=== PATIENT | female | born 1960 | race Caucasian/White ===

== ENCOUNTER → 2020-06-05 12:20 | Outpatient (BNVA) | payer MEDICARE, MEDICAID, SELFPAY | PROVIDERS: Visit Provider Psychiatry & Neurology Psychiatry | DX: F43.10 Post-traumatic stress disorder, unspecified (principal); F41.9 Anxiety disorder, unspecified | CPT/HCPCS: 90792 ==

== ENCOUNTER → 2020-07-05 09:23 | Outpatient (BNVA) | payer MEDICARE, MEDICAID, SELFPAY | PROVIDERS: Visit Provider Psychiatry & Neurology Psychiatry | DX: F43.10 Post-traumatic stress disorder, unspecified (principal); F41.9 Anxiety disorder, unspecified | CPT/HCPCS: 99214 ==

== ENCOUNTER 2020-08-18 17:11 | Emergency (ER) | payer MEDICARE, MEDICAID, SELFPAY ==
[2020-08-18 17:20] VITALS: BP 164/107; PULSE 93; RESP 18; TEMP 36.7; O2SAT 96; BMI 49.6
--- NOTE | 2020-08-18 17:31 | ECG_ITS ---
[facility] Test Date: 2020-08-18 Pat Name: Kacy Jimenez Department: Room: Gender: Female Music Director: : 1960 Requested By: Mu Mensah Order Number: [id number] Pio MD: Sheldon Toro M.D. Measurements Intervals [place] Rate: 97 P: 29 DC: 151 QRS: -4 QRSD: 89 T: 73 QT: 355 QTc: 451 Interpretive Statements SINUS RHYTHM WITH FREQUENT SUPRAVENTRICULAR PREMATURE COMPLEXES NONSPECIFIC T-WAVE ABNORMALITY ABNORMAL RHYTHM ECG No previous ECG available for comparison Electronically Signed On 08-19-2020 18:03:15 CDT by Sheldon Toro M.D. [email or web address] medical [email or web address] medical [facility].[facility]/store/OM/[id number]
--- NOTE | 2020-08-18 17:31 | CTR_ITS ---
PROCEDURE INFORMATION: Exam: CT Abdomen And Pelvis Without Contrast Exam date and time: 08/18/2020 5:51 PM Age: 60 years old Clinical indication: Abdominal pain; Right; Prior surgery; Surgery date: 6+ months; Surgery type: Gb, hernia; Patient HX: C/O R flank pain w a HX of stones TECHNIQUE: Imaging protocol: Computed tomography of the abdomen and pelvis without contrast. Radiation optimization: All CT scans at this facility use at least one of these dose optimization techniques: automated exposure control; mA and/or kV adjustment per patient size (includes targeted exams where dose is matched to clinical indication); or iterative reconstruction. COMPARISON: No relevant prior studies available. RADIATION DOSE METRICS: Total DLP (mGy-cm): 1921.88 FINDINGS: Lungs: The visualized lung bases are clear. Liver: Normal size and density. No focal mass. Gallbladder and bile ducts: Status post cholecystectomy. No evidence of biliary dilatation. Pancreas: No evidence of mass. No ductal dilation. Spleen: No splenomegaly or mass. Adrenal glands: Small bilateral adrenal nodules are fat density consistent with a benign lipid rich adrenal adenomas. Kidneys and ureters: A tiny calcification in the left kidney is most likely a vascular calcification. No definite stones. No hydronephrosis or hydroureter. Stomach and bowel: Scattered diverticula throughout the colon. No signs of diverticulitis. Appendix: The appendix is not clearly seen, but there are no secondary signs of acute appendicitis. Intraperitoneal space: No free air. No free fluid or evidence of abscess. Vasculature: Scattered vascular calcifications. Lymph nodes: No lymphadenopathy. Urinary bladder: The urinary bladder is collapsed and otherwise normal in CT appearance. Reproductive: Status post hysterectomy. Bones/joints: Moderate degenerative changes of the spine. Soft tissues: Small fat containing right inguinal hernia Postsurgical changes of the abdominal wall. CT/CT kidney stone 20638 IMPRESSION: No urinary tract stones. No hydronephrosis or hydroureter. Scattered diverticulosis. No signs of diverticulitis. Small fat containing right inguinal hernia. Radiation Dose CTDIVOL = (mGy): DLP = 1921.88 (mGy-cm)
--- NOTE | 2020-08-18 17:31 | W.ED.BACK ---
Documented by User: Mu Hazel DO 08/20/20 07:41 HPI - Back Pain/Injury General: Chief Complaint: Back Pain/Injury Stated Complaint: BACK PAIN Time Seen by Provider: 08/18/20 17:20 History of Present Illness: HPI Narrative: 60-year-old female comes in complaining of right-sided flank pain. Is very positional when she moves or even tries to get up on the bed exacerbates significantly she is not noted any hematuria no dysuria urgency or frequency no fever sweats or chills denies any abdominal pain. She does have a history of kidney stones been several years since she has had a problem with a kidney stone. MD elicited complaint: back pain [facility] ED PFSH: Medical History Anxiety History of colon polyps PTSD (post-traumatic stress disorder) Social History Current gender identity: Female Course Vital Signs: Vital signs: Vital Signs Temperature 98.1 F 08/18/20 20:16 Pulse Rate 87 08/18/20 20:16 Respiratory Rate 18 08/18/20 20:16 Blood Pressure 143/91 08/18/20 20:16 Pulse Oximetry 96 08/18/20 20:16 MDM - Back Pain/Injury MDM Narrative: Medical decision making narrative: Care turned over to Dr. Hinton at change of shift see his notes for final diagnosis and disposition Lab Data: Labs: Lab Results 08/18/20 08/18/20 08/18/20 Range/Units 17:53 17:53 17:56 WBC 13.2 H (4.0-10.0) 10^3/ uL RBC 5.35 H (4.1-5.3) 10^6/u L Hgb 16.1 H (11.5-15.3) g/dL Hct 49.6 H (37.0-47.0) % MCV 92.7 (81-99) fL MCH 30.1 (28.0-34.0) pg MCHC 32.5 (30.0-36.0) g/dL RDW 14.7 (12.1-15.1) % Plt Count 337 (130-400) 10^3/c mm MPV 10.0 (7.4-10.4) fL Neut % (Auto) 68.6 % Lymph % (Auto) 23.8 % [place] % (Auto) 5.2 % Eos % (Auto) 1.7 % Baso % (Auto) 0.5 % Neut # (Auto) 9.02 H (1.8-7.7) 10^3/u L Lymph # (Auto) 3.1 (0.8-4.8) 10^3/u L [place] # (Auto) 0.7 (0.2-0.9) 10^3/u L Eos # (Auto) 0.2 (0.0-0.8) 10^3/u L Baso # (Auto) 0.1 (0.0-0.1) 10^3/u L Nucleated RBC % (a uto) 0 % Nucleated RBCs # 0.0 /100WBC Sodium 137 (136-145) mmol/L Potassium 4.1 (3.5-5.1) mmol/L Chloride 100 (98-107) mmol/L Carbon Dioxide 25 (22-29) mmol/L Anion Gap 16.1 (5-19) BUN 14 (8-23) mg/dL Creatinine 0.5 (0.5-0.9) mg/dL GFR Calculation 125.9 (90-130) mL/min Glucose 100 (65-115) mg/dL Calculated Osmolal ity 285 (285-295) mOsm/k g Calcium 8.8 (8.5-10.5) mg/dL Total Bilirubin 0.2 (0.15-1.2) mg/dL AST 10 (0-32) U/L ALT 12 (0-33) U/L Alkaline Phosphata se 110 H (35-105) IU/L Total Protein 7.1 (6.6-8.7) g/dL Albumin 4.0 (3.5-5.2) g/dL Globulin 3.1 (1.3-4.6) g/dL Urine Color Straw (Yellow) Urine Appearance Clear (CLEAR) Urine pH 5 (5-7) Ur Specific Gravit y 1.005 (1.005-1.030) Urine Protein Neg (Negative) Urine Glucose (UA) Norm (Normal) Urine Ketones Negative (Negative) Urine Blood 3+ H (Negative) Urine Nitrate Negative (Negative) Urine Bilirubin Neg (Negative) Urine Urobilinogen Norm (Negative) mg/dL Ur Leukocyte Audrey ase Negative (Negative) Urine RBC 0-4 H (0-2) /hpf Urine WBC 0-4 H (0-5) /hpf Ur Squamous Epith Cells 15-25 H (0-5) /hpf Amorphous Sediment Not Reportable Urine Bacteria Trace (NONE) /hpf Urine Mucus Trace /hpf Discharge Plan Discharge Patient Disposition: Home Clinical Impression: Renal colic Condition: Stable Prescriptions: New Zofran 4 mg tablet 4 mg PO Q6H PRN (Reason: nausea and vomiting) Qty: 10 RF: 0 Percocet 7.5-325 mg tablet 1 tab PO Q6H PRN (Reason: pain) Qty: 10 RF: 0 No Action amlodipine 10 mg tablet 10 mg PO QAM RF: 0 olmesartan 20 mg tablet 20 mg PO QAM RF: 0 atorvastatin 40 mg tablet 80 mg PO BEDTIME RF: 0 alprazolam 1 mg tablet 1 mg PO BID PRN (Reason: UNKNOWN) RF: 0 omeprazole 40 mg capsule,delayed release(DR/EC) 40 mg PO DAILY PRN (Reason: Acid Reflux) RF: 0 citalopram 20 mg tablet 20 mg PO QAM RF: 0 Ventolin HFA 90 mcg/actuation HFA aerosol inhaler 2 puff INHALATION Q4H PRN (Reason: Shortness Of Breath) RF: 0 Spiriva with HandiHaler 18 mcg Capsule, W/Inhalation Device 1 cap INHALATION DAILY RF: 0 BC Pain Relief 845-65 mg Powder In Packet 1 ea PO PRN RF: 0 jbdfyopjum-zplyvottlkurf-xnqo 50-300-40 mg capsule 1 cap PO PRN RF: 0 Discharge Orders: Discharge ED (Routine); Ordered 08/18/20 Ordered By: Edson Hinton Referrals: Funez,Tash, FORGING DIES FINAL FINISHER [Primary Care Provider] - 1-3 days Patient Instructions: Abdominal Pain (ED), Opioid Safety Activity Restrictions/Additional Instructions: Return for fever greater than 100, vomiting liquids or medications, worsening pain despite treatment, mental status changes, other concerning symptoms. Use a minimum amount of pain medication required. Coding Level of Care Code ED Engine Lathe Set Up Operator for Chg Fwd Exam Detailed Documented by User: Edson Hinton DO 08/18/20 22:54 HPI - Back Pain/Injury General: Chief Complaint: Back Pain/Injury Stated Complaint: BACK PAIN Time Seen by Provider: 08/18/20 17:20 History of Present Illness: Associated symptoms: Reports nausea; Deny abdominal pain, dysuria, fever(s) or vomiting Review of Systems Const: Denies: fever(s) Card: Denies: chest pain or palpitations Resp: Denies: dyspnea GI: Reports: nausea; Denies: abdominal pain or vomiting : Reports: flank pain; Denies: difficulty voiding, dysuria or urinary frequency Musc: Reports: back pain Neuro: Denies: numbness in extremities or weakness in extremities PFSH ED PFSH: Medical History Anxiety History of colon polyps PTSD (post-traumatic stress disorder) Social History Current gender identity: Female Physical Exam Const: COMMON NORMALS: patient oriented x3 and alert GENERAL APPEARANCE: cooperative NUTRITIONAL APPEARANCE: obese Chest: COMMONS NORMALS: normal inspection of the chest Resp: COMMON NORMALS: normal respiratory effort, No retractions and No use of accessory muscles Cardio: COMMON NORMALS: regular rate and regular rhythm RATE: regular rate RHYTHM: regular rhythm Back/Pelvis: GENERAL BACK: Yes CVA tenderness CVA tenderness: right THORACIC SPINE/UPPER BACK: Yes normal to inspection and No paraspinal muscle spasm Neuro: COMMON NORMALS: patient oriented x3 SENSORIUM/ORIENTATION: Yes alert Skin: COMMON NORMALS: no rashes or lesions noted GENERAL SKIN EXAM: no rashes or lesions noted Course Vital Signs: Vital signs: Vital Signs Temperature 98.1 F 08/18/20 20:16 Pulse Rate 87 08/18/20 20:16 Respiratory Rate 18 08/18/20 20:16 Blood Pressure 143/91 08/18/20 20:16 Pulse Oximetry 96 08/18/20 20:16 MDM - Back Pain/Injury MDM Narrative: Medical decision making narrative: 60-year-old female checked out to me at shift change by Dr. Hazel. She is experiencing right flank pain. It is somewhat improved now here. Her white blood cell count is 13.2 with no left shift. Her hemoglobin is 16.1. Her electrolytes and renal function are normal. CT shows no urinary tract stones and no hydronephrosis or hydroureter. She does have significant spondylosis of the lumbar spine. Her urinalysis shows scant hematuria. She will be allowed home on pain medication and some nausea medication. Lab Data: Labs: Lab Results 08/18/20 08/18/20 08/18/20 Range/Units 17:53 17:53 17:56 WBC 13.2 H (4.0-10.0) 10^3/ uL RBC 5.35 H (4.1-5.3) 10^6/u L Hgb 16.1 H (11.5-15.3) g/dL Hct 49.6 H (37.0-47.0) % MCV 92.7 (81-99) fL MCH 30.1 (28.0-34.0) pg MCHC 32.5 (30.0-36.0) g/dL RDW 14.7 (12.1-15.1) % Plt Count 337 (130-400) 10^3/c mm MPV 10.0 (7.4-10.4) fL Neut % (Auto) 68.6 % Lymph % (Auto) 23.8 % [place] % (Auto) 5.2 % Eos % (Auto) 1.7 % Baso % (Auto) 0.5 % Neut # (Auto) 9.02 H (1.8-7.7) 10^3/u L Lymph # (Auto) 3.1 (0.8-4.8) 10^3/u L [place] # (Auto) 0.7 (0.2-0.9) 10^3/u L Eos # (Auto) 0.2 (0.0-0.8) 10^3/u L Baso # (Auto) 0.1 (0.0-0.1) 10^3/u L Nucleated RBC % (a uto) 0 % Nucleated RBCs # 0.0 /100WBC Sodium 137 (136-145) mmol/L Potassium 4.1 (3.5-5.1) mmol/L Chloride 100 (98-107) mmol/L Carbon Dioxide 25 (22-29) mmol/L Anion Gap 16.1 (5-19) BUN 14 (8-23) mg/dL Creatinine 0.5 (0.5-0.9) mg/dL GFR Calculation 125.9 (90-130) mL/min Glucose 100 (65-115) mg/dL Calculated Osmolal ity 285 (285-295) mOsm/k g Calcium 8.8 (8.5-10.5) mg/dL Total Bilirubin 0.2 (0.15-1.2) mg/dL AST 10 (0-32) U/L ALT 12 (0-33) U/L Alkaline Phosphata se 110 H (35-105) IU/L Total Protein 7.1 (6.6-8.7) g/dL Albumin 4.0 (3.5-5.2) g/dL Globulin 3.1 (1.3-4.6) g/dL Urine Color Straw (Yellow) Urine Appearance Clear (CLEAR) Urine pH 5 (5-7) Ur Specific Gravit y 1.005 (1.005-1.030) Urine Protein Neg (Negative) Urine Glucose (UA) Norm (Normal) Urine Ketones Negative (Negative) Urine Blood 3+ H (Negative) Urine Nitrate Negative (Negative) Urine Bilirubin Neg (Negative) Urine Urobilinogen Norm (Negative) mg/dL Ur Leukocyte Audrey ase Negative (Negative) Urine RBC 0-4 H (0-2) /hpf Urine WBC 0-4 H (0-5) /hpf Ur Squamous Epith Cells 15-25 H (0-5) /hpf Amorphous Sediment Not Reportable Urine Bacteria Trace (NONE) /hpf Urine Mucus Trace /hpf Discharge Plan Discharge Patient Disposition: Home Clinical Impression: Renal colic Condition: Stable Prescriptions: New Zofran 4 mg tablet 4 mg PO Q6H PRN (Reason: nausea and vomiting) Qty: 10 RF: 0 Percocet 7.5-325 mg tablet 1 tab PO Q6H PRN (Reason: pain) Qty: 10 RF: 0 No Action amlodipine 10 mg tablet 10 mg PO QAM RF: 0 olmesartan 20 mg tablet 20 mg PO QAM RF: 0 atorvastatin 40 mg tablet 80 mg PO BEDTIME RF: 0 alprazolam 1 mg tablet 1 mg PO BID PRN (Reason: UNKNOWN) RF: 0 omeprazole 40 mg capsule,delayed release(DR/EC) 40 mg PO DAILY PRN (Reason: Acid Reflux) RF: 0 citalopram 20 mg tablet 20 mg PO QAM RF: 0 Ventolin HFA 90 mcg/actuation HFA aerosol inhaler 2 puff INHALATION Q4H PRN (Reason: Shortness Of Breath) RF: 0 Spiriva with HandiHaler 18 mcg Capsule, W/Inhalation Device 1 cap INHALATION DAILY RF: 0 BC Pain Relief 845-65 mg Powder In Packet 1 ea PO PRN RF: 0 wykdowjfgr-qtbahrzhlzdpd-zsew 50-300-40 mg capsule 1 cap PO PRN RF: 0 Discharge Orders: Discharge ED (Routine); Ordered 08/18/20 Ordered By: Edson Hinton Referrals: Funez,Tash, FORGING DIES FINAL FINISHER [Primary Care Provider] - 1-3 days Patient Instructions: Abdominal Pain (ED), Opioid Safety Activity Restrictions/Additional Instructions: Return for fever greater than 100, vomiting liquids or medications, worsening pain despite treatment, mental status changes, other concerning symptoms. Use a minimum amount of pain medication required. Coding Level of Care Code ED Engine Lathe Set Up Operator for Chg Fwd Exam Detailed
[2020-08-18 18:16] LABS: Basophils # 0.1 10^3/uL (0.0-0.1); Basophils % 0.5 %; Eosinophils # 0.2 10^3/uL (0.0-0.8); Eosinophils % 1.7 %; Hematocrit 49.6 % (37.0-47.0); Hemoglobin 16.1 g/dL (11.5-15.3); Lymphocytes # 3.1 10^3/uL (0.8-4.8); Lymphocytes % 23.8 %; Mean Corpuscular HGB Conc 32.5 g/dL (30.0-36.0); Mean Corpuscular Hemoglobin 30.1 pg (28.0-34.0); Mean Corpuscular Volume 92.7 fL (81-99); Monocytes # 0.7 10^3/uL (0.2-0.9); Monocytes % 5.2 %; Neutrophils # 9.02 10^3/uL (1.8-7.7); Neutrophils % 68.6 %; Nucleated Red Blood Cells % 0 %; Platelet Count 337 10^3/cmm (130-400); Red Blood Count 5.35 10^6/uL (4.1-5.3); Red Cell Distribution Width 14.7 % (12.1-15.1); White Blood Count 13.2 10^3/uL (4.0-10.0)
[2020-08-18 18:26] LABS: Blood Urine 3+ (Negative); Glucose Urine UA Norm (Normal); Ketones Urine Negative (Negative); Protein Urine Neg (Negative); Specific Gravity, Urine 1.005 (1.005-1.030); Urine Appearance Clear (CLEAR); Urine Color Straw (Yellow); pH Urine 5 (5-7)
[2020-08-18 18:27] LABS: Add Urine Microscopic? YES; Bilirubin Urine Neg (Negative); Leukocyte Esterase Urine Negative (Negative); Nitrate Urine Negative (Negative); Urobilinogen Urine Norm (Negative)
[2020-08-18 18:36] LABS: Alanine Aminotransferase 12 U/L (0-33); Alkaline Phosphatase 110 IU/L (35-105); Aspartate Amino Transferase 10 U/L (0-32); Blood Urea Nitrogen 14 mg/dL (8-23); Calcium 8.8 mg/dL (8.5-10.5); Carbon Dioxide 25 mmol/L (22-29); Chloride 100 mmol/L (98-107); Globulin 3.1 g/dL (1.3-4.6); Glomerular Filtration Rate 125.9 mL/min (90-130); Glucose 100 mg/dL (65-115); Osmolality Calculated 285 mOsm/kg (285-295); Sodium 137 mmol/L (136-145); Total Bilirubin 0.2 mg/dL (0.15-1.2); Total Protein 7.1 g/dL (6.6-8.7)
[2020-08-18 18:38] LABS: RBC Urine 0-4 /hpf (0-2); Squamous Epithelial Cell Urine 15-25 /hpf (0-5); WBC Urine 0-4 /hpf (0-5)
[2020-08-18 18:39] LABS: Add Urine Culture? No; Bacteria Urine TRACE /hpf; Mucus Urine TRACE /hpf
[2020-08-18 18:45] VITALS: RESP 18
[2020-08-18] MEDS: ondansetron 2 mg/ML SDV 2 mL 4 MG IVP (18:45)
[2020-08-18] MEDS: sodium chloride 0.9% 1,000 ML 999 ML IV (18:45)
[2020-08-18] MEDS: morphine 4 mg/mL SDV 1 mL IVP (18:45)
[2020-08-18] MEDS: ketorolac 30 mg/mL INJ IVP (18:47)
[2020-08-18 19:05] LABS: Anion Gap 16.1 (5-19); Potassium 4.1 mmol/L (3.5-5.1)
[2020-08-18] MEDS: oxyCODONE-APAP 5-325 mg Tablet 2 TAB PO (20:10)
[2020-08-18 20:16] VITALS: BP 143/91; PULSE 87; RESP 18; TEMP 36.7; O2SAT 96
== END 2020-08-18 20:20 | disposition home or self-care (01) ==
PROVIDERS: Family Medicine; Emergency Provider Emergency Medicine; PCP Nurse Practitioner Family
DX: N23 Unspecified renal colic (principal)
CPT/HCPCS: 74176; 80053; 81001; 85025; 93005; 96361; 96374; 96375; 99284; J1885; J2270; J2405; J7030

== ENCOUNTER 2020-11-02 13:55 | Outpatient (CLI) | payer MEDICARE, MEDICAID, SELFPAY ==
--- NOTE | 2020-11-02 13:58 | MM_ITS ---
WS: [id number] BILATERAL SCREENING DIGITAL MAMMOGRAM WITH CAD HISTORY: SCREENING COMPARISON: None available. Bilateral CC and MLO views submitted. Computer aided detection analyzed. Breast composition: There are scattered areas of fibroglandular density. No suspicious masses, microc alcifications or architectural distortion. Numerous benign rodlike calcifications within each breast. MM/[place] [id number] IMPRESSION: BI-RADS: 2-Benign FOLLOW UP: 1 Year Follow-up
--- NOTE | 2020-11-02 14:36 | XR_ITS ---
WS: [id number] Lumbar spine, 3 views, 11/02/2020 Clinical Data: LOW BACK PAIN Comparison: Lumbar spine, 06/12/2020. Findings: No compression fractures or subluxation is seen. There is degenerative disc narrowing at L1-L2, L2-L3 , L3-L4 L5-S1. There is anterior osteophyte formation at all lumbar vertebral bodies. There is a slig ht dextroscoliosis. The transverse processes and SI joints are normal. There are clips in the right upper quadrant from a cholecystectomy. There are anterior surgical clips probably for a ventral hernia repair. XR/XR lumbar spine 2-3V* [id number] Impression: 1. Multilevel degenerative disc disease. 2. Moderate osteoarthritic spurring with dextroscoliosis.
== END 2020-11-02 13:56 | disposition home or self-care (01) ==
PROVIDERS: PCP Nurse Practitioner Family; Visit Provider Nurse Practitioner Family
DX: Z12.31 Encounter for screening mammogram for malignant neoplasm of breast (principal); M54.5 Low back pain; M51.36 Other intervertebral disc degeneration, lumbar region; M41.86 Other forms of scoliosis, lumbar region
CPT/HCPCS: 72100; 77067

== ENCOUNTER → 2020-12-21 11:51 | Outpatient (BNVA) | payer MEDICARE, MEDICAID, SELFPAY | PROVIDERS: PCP Nurse Practitioner Family; Visit Provider Surgery | DX: Z20.822 Contact with and (suspected) exposure to COVID-19 (principal) | CPT/HCPCS: 87635 ==

== ENCOUNTER 2020-12-27 06:19 | Day surgery (SDC) | payer MEDICARE, MEDICAID, SELFPAY ==
[2020-12-25 11:23] VITALS: BMI 47.6
[2020-12-27 06:41] VITALS: BP 156/118; PULSE 99; RESP 18; TEMP 36.1; O2SAT 96
[2020-12-27] MEDS: sodium chloride 0.9% 1,000 ML 30 ML IV (06:57)
--- NOTE | 2020-12-27 07:23 | W.PM.OPSFHP ---
Same Day Surgery H&P Indication for Procedure/HPI DATE OF PROCEDURE: December 27, 2020 CHIEF COMPLAINT/INDICATIONFOR SURGICAL PROCEDURE: I had polyps PREOP DIAGNOSIS: History of colon polyps and left upper quadrant abdominal pain PLANNED PROCEDRUE: Operation Date: 12/27/20 07:30 Proposed Procedures p Colonoscopy 93019 z86.01(Not Applicable) - Moody Kidd MD This is a pleasant 60 years old female patient morbidly obese with a current BMI of 47 and weighs 240 pounds, patient reports history of left upper quadrant abdominal pain has been on and off and has been burning. Nothing seems to make it better or worse. Last colonoscopy 3 years ago and was found to have polyps. Denies any bleeding per rectum or nonintentional weight loss and she reports regular bowel movements.She also reports colon cancer history of one of her nephews. Patient is referred to me for surveillance colonoscopy Interim history 12/27/2020 Patient is coming today for diagnostic colonoscopy ROS All systems have been reviewed negative except as per the above or per problem list Medications/Allergies* Home Medications Medication Instructions Recorded Confirmed Type amlodipine 10 mg tablet 10 mg PO QAM 04/26/20 12/27/20 History atorvastatin 40 mg tablet 80 mg PO BEDTIME 04/26/20 12/27/20 History olmesartan 20 mg tablet 20 mg PO QAM 04/26/20 12/27/20 History alprazolam 1 mg PO BID PRN 08/18/20 12/27/20 History dezvmpaesh-wlkasfwgwixfs-ynkf 1 cap PO PRN PRN 08/18/20 12/27/20 History citalopram 20 mg PO QAM 08/18/20 12/27/20 History omeprazole 40 mg PO DAILY PRN 08/18/20 12/27/20 History tiotropium bromide [Spiriva with 1 cap INHALATION DAILY 08/18/20 12/27/20 History HandiHaler] Allergies/Adverse Reactions Allergy/AdvReac Type Severity Reaction Status Date / Time cefaclor [From [facility]] Allergy Unknown Unknown Verified 12/27/20 07:24 clindamycin Allergy Unknown Unknown Verified 12/27/20 07:24 Current Medications: Generic Name Dose Route Start Last Admin Trade Name Freq PRN Reason Stop Dose Admin Sodium Chloride 1,000 mls @ 30 mls/hr 12/27/20 06:30 12/27/20 06:57 Sodium Chloride 0.9% IV 30 mls/hr .Q24H SARINA Administration Pertinent History/Comorbid Conditions* Medical History (Updated 08/26/20 @ 00:00 by ) Anxiety History of colon polyps PTSD (post-traumatic stress disorder) Family History (Updated 08/29/20 @ 16:11 by Gracie Castro LPN) Sleep apnea Brother Pancreatic cancer Sister Prostate cancer Heart disease Brother Lung cancer Father Hypertension Mother Stroke Mother Social History Current gender identity: Female Pertinent Exam Findings alert, oriented x 3, clear to auscultation bilaterally and procedure specific exam findings (Abdominal examination nontender nondistended soft) Recommendations Surgery/Procedure today (Colonoscopy) Other Plans: Plan of care; After thorough history and physical examination and reviewing the chart, plan to perform diagnostic colonoscopy. I discussed with the patient in details the risks,benefits,alternatives and indications.The risk of aspiration, bleeding, soft tissue injury, perforation of the colon and other potential concomitant complications were explained to the patient in details,also the potential need for Laproscoy/Laparotomy to repair any related complications including but not limited to colectomy and or Closotomy.The patient understood this well and did agree to proceed. Rationale was carefully and clearly discussed with the patient.Appropriate informed consent have been reviewed and signed All questions have been answered and all concerns have been addressed to patient's satisfaction. Verbal and written Instructions were given to the patient for colonoscopy prep Coding Level of Care Code Acute A/C Technician for Nick Stallings
--- NOTE | 2020-12-27 07:25 | ANES.PREANE2 ---
Pre-Anesthetic Assessment Pre-Anesthetic Assessment: Height/Weight: Height 1.51 m Weight 108.862 kg Temp Pulse Resp BP Pulse Ox 97 F L 99 18 156/118 96 12/27/20 06:41 12/27/20 06:41 12/27/20 06:41 12/27/20 06:41 12/27/20 06:41 Preop Diagnosis: History of colon polyps and left upper quadrant abdominal pain Proposed Procedure: Operation Date: 12/27/20 07:30 Proposed Procedures p Colonoscopy 57050 z86.01(Not Applicable) - Moody Kidd MD Was Beta Regina taken within 24 hours: N/A Was Clonidine taken within 24 hours: N/A Last intake: Intake Last Liquid Date 12/26/20 Last Liquid Time 23:00 Last Solid Date 12/25/20 Last Solid Time 16:00 Social: Social History: Tobacco Exam: Pre-Anes Outpt Exam: alert, oriented x 3, clear to auscultation bilaterally and regular rate & rhythm Airway: Submandibular: WNL Cervical ROM: WNL MP: 3 Dentition: False History/ROS: No significant history except as noted Pulmonary: Pulmonary: COPD and SOB CV/HEM: CV/HEM: HTN : : None reported Hepatic: Hepatic: None reported GI: GI: GERD Metabolic: Metabolic: Hyperlipidemia and Morbid obesity Musc/skel: Musc/skel: Lower Back Pain and OA/DJD Neuropsych: Neuropsych: Anxiety and Depression Anesthetic Plan: ASA status: 3 Anesthesia: Anesthesia Evaluation and MAC Risk of > 500 ml blood loss (7ml/kg in children): No Meds/Allergies Current Medications: Current Medications Generic Name Dose Route Start Last Admin Trade Name Freq PRN Reason Stop Dose Admin Sodium Chloride 1,000 mls @ 30 ml s/hr 12/27/20 06:30 12/27/20 06:57 Sodium Chloride 0.9% IV 30 mls/hr .Q24H SARINA Administration PFSH Anesthesia PFSH: Medical History (Updated 12/11/20 @ 16:52 by Gracie Castro LPN) Anxiety History of colon polyps PTSD (post-traumatic stress disorder) Family History Mother Hypertension Stroke Brother Heart disease Sleep apnea Father Lung cancer Sister Pancreatic cancer Other Prostate cancer Social History Current gender identity: Female Data Anesthesia Cardiac Studies: No Data to Display
[2020-12-27 08:04] VITALS: BP 136/96; PULSE 99; RESP 16; TEMP 36.1; O2SAT 93
[2020-12-27 08:20] VITALS: BP 152/115; PULSE 87; RESP 18; O2SAT 92
--- NOTE | 2020-12-27 12:00 | ANE.PACU2 ---
Inpatient post-anesthesia follow up: Airway intact: Yes Vital signs: Temperature 97 F Pulse Rate 87 Respiratory Rate 18 Blood Pressure 152/115 Pulse Oximetry 92 Oxygen Delivery Me thod Room Air Oxygen Flow Rate Fraction of Inspir ed Oxygen Hydration adequate: Yes Nausea and vomiting: No Pain level: 1 Mental status: Baseline
== END 2020-12-27 08:30 | disposition home or self-care (01) ==
PROVIDERS: PCP Nurse Practitioner Family; Visit Provider Surgery
PROC: 0DJD8ZZ Inspection of Lower Intestinal Tract, Via Natural or Artificial Opening Endoscopic (ICD-10-PCS; CPT 45378; principal; 2020-12-27 07:30)
DX: Z86.010 Personal history of colon polyps (principal); D12.3 Benign neoplasm of transverse colon; J44.9 Chronic obstructive pulmonary disease, unspecified; K21.9 Gastro-esophageal reflux disease without esophagitis; E78.5 Hyperlipidemia, unspecified; E66.01 Morbid (severe) obesity due to excess calories; Z68.42 Body mass index [BMI] 45.0-49.9, adult
CPT/HCPCS: 45385; 88305; 96360; J2704; J7030